=== PATIENT | female | born 1960 | race Two or more races ===

== ENCOUNTER → 2017-08-04 | Outpatient (CLI) | payer BC | LOC: FIMAGING 08:16 → EDSTATUS 08:20 → FIMAGING 08:33 | PROVIDERS: ATTEND Internal Medicine | DX: Z12.31 Encounter for screening mammogram for malignant neoplasm of breast (principal) | CPT/HCPCS: G0202 ==

== ENCOUNTER → 2018-09-07 | Outpatient (CLI) | payer OTHER | LOC: FIMAGING 13:46 | PROVIDERS: ATTEND Internal Medicine | DX: Z12.31 Encounter for screening mammogram for malignant neoplasm of breast (principal) ==